=== PATIENT | female | born 1995 | race Caucasian/White ===

== ENCOUNTER → 2022-12-02 10:44 | Outpatient (CLI) | payer BC, MEDICAID, SELFPAY | PROVIDERS: Visit Provider Nurse Practitioner Family | DX: Z11.1 Encounter for screening for respiratory tuberculosis (principal) | CPT/HCPCS: 86580 ==

== ENCOUNTER 2023-06-22 10:32 | Emergency (ER) | payer BC, MEDICAID, SELFPAY ==
[2023-06-22 10:40] VITALS: BP 106/80; PULSE 85; RESP 19; TEMP 36.6; O2SAT 98; BMI 22.1
--- NOTE | 2023-06-22 10:49 | EXP.UTC ---
Discharge Plan Disposition Patient Disposition: Home, Self-Care Condition: Good Prescriptions Prescriptions: New ondansetron 4 mg tablet,disintegrating 4 mg PO Q8H PRN (Reason: nausea and vomiting) Qty: 12 0RF No Action magnesium oxide 400 mg (241.3 mg magnesium) tablet 400 mg PO DAILY prazosin 2 mg capsule 2 mg PO DAILY Vraylar 3 mg Capsule 3 mg PO DAILY Caplyta 42 mg capsule 42 mg PO DAILY Referrals Follow up/Referrals: Provider,Referral, MD [Primary Care Provider] - See instructions Activity Restrictions/Add. Instructions Additional Instructions/Restrictions: Drink extra fluids with and between meals. If you have difficulty drinking, try very small amounts of water or suck on ice chips. ? Avoid fruit juices, as these do not replace minerals and can actually increase diarrhea. ? Children and adults can use sports drinks to replenish electrolytes. Younger children and infants should use products formulated for children, like oral rehydration solutions. ? Eat food in small amounts and let your stomach recover. ? Get lots of rest. You may feel tired or weak. ? No greasy or fried foods for the next 24-48 hours BRAT diet Bananas Rice Apples and [place] ? Make sure to drink plenty of liquids ? Return if needed ? Straight to ER if any life threatening symptoms ? Zofran as prescribed ? Follow up with family doctor in the next 48-72 hours if no improvement or any worsening of symptoms You were tested for today for Upper Respiratory Panel with COVID19 your test result should be back in the next 24hours, you may check your results on the [facility] if your COVID or Influenza is positive you must Quarantine for 5 days Clinical Impressions Clinical Impression: Viral syndrome Stand Alone Forms Stand Alone Forms: Work/School Release Instructions Patient Instructions: DI for Viral Syndrome Discharge ED Provider: Vicenta Bui [facility] [place] H[place] General Stated complaint: fever, chills, nausea, Mode of Arrival: Ambulatory Source of Information: Patient Limitations: No Limitations Time Seen by Provider: 06/22/23 10:49 Description of Symptoms (Recalled from Triage Doc. by RN): PATIENT C/O CHILLS, HEADACHE, SORE THROAT, NAUSEA AND VOMITING X 4 DAYS HEENT Symptoms (Recalled from RN notes): Yes Resp Symptoms (Recalled from RN notes): No Skin Symptoms (Recalled from RN notes): No MS Symptoms (Recalled from RN notes): No Functional Status (Recalled from RN notes): WNL History of Present Illness Provider Complaint: Patient states she has been sick for about 3-4 days States that a couple days ago she had fever then it stopped and she has continued to have body aches, chills, N/V and low grade fever so this morning when she woke up and was still not feeling well she came in to get checked because of everything going around Related Data Home Medications Medication Instructions Recorded Confirmed cariprazine 3 mg capsule (Vraylar) 3 mg PO DAILY 06/22/23 06/22/23 lumateperone 42 mg capsule 42 mg PO DAILY 06/22/23 06/22/23 (Caplyta) magnesium oxide 400 mg (241.3 mg 400 mg PO DAILY 06/22/23 06/22/23 magnesium) tablet prazosin 2 mg capsule 2 mg PO DAILY 06/22/23 06/22/23 Previous Rx's Medication Instructions Recorded ondansetron 4 mg disintegrating 4 mg PO Q8H PRN nausea and 06/22/23 tablet vomiting #12 tabs Allergies Allergy/AdvReac Type Severity Reaction Status Date / Time albuterol Allergy Verified 06/22/23 10:47 Worker's Comp Is this a Worker's Comp case?: No [facility] Disclaimer: The information contained in this section may have been updated after the patient was seen, as this information can be updated by other users. Medical History (Updated 06/22/23 @ 11:23 by Vicenta Bui APRN) Anxiety Depression History of anemia Migraine Urinary tract infection Surgical History (Updated 06/22/23 @ 10:49 by Ruth Segundo RN) H/O wisdom tooth extraction History of section Social History Smoking Status: Unknown if ever smoked alcohol intake: never current occupational status: employed Travel in the last 8 weeks: None ROS Obtained: Yes All systems reviewed & no additional complaints except as documented and Yes Systems reviewed as appropriate & no additional complaints except as documented Constitutional Constitutional: Reports system reviewed and no additional complaints, except as documented, Reports as per HPI, Reports body ache, Reports chills and Reports fever(s) ENT Ears, Nose, Mouth, and Throat: Reports system reviewed and no additional complaints, except as documented, Reports as per HPI, Reports nasal congestion and Reports sore throat Cardiovascular Cardiovascular: Reports system reviewed and no additional complaints, except as documented and Reports as per HPI Respiratory Respiratory: Reports system reviewed and no additional complaints, except as documented and Reports as per HPI Gastrointestinal Gastrointestingal: Reports system reviewed and no additional complaints, except as documented, as per HPI, nausea and vomiting Physical Exam General General appearance: alert and in no apparent distress ENT ENT exam: Present mucous membranes moist Expanded ENT Exam Nose exam: Absent sinus tenderness Throat exam: Present tonsillar erythema Respiratory Respiratory exam: Present normal lung sounds bilaterally; Absent respiratory distress or wheezes Cardiovascular Cardiovascular exam: Present regular rate, normal rhythm and normal heart sounds Abdominal Exam Abdominal exam: Present soft and normal bowel sounds; Absent distention or tenderness Neurological Exam Neurological exam: Present alert, oriented X3 and normal gait Medical Decision Making Kendall Inquiry Pt receiving controlled substance: No Kendall was queried for this patient: No Vital Signs: 06/22/23 10:40 Temperature 97.8 F Temperature Source Oral Pulse Rate [Right Brachial] 85 Respiratory Rate 19 Blood Pressure [Right Arm] 106/80 L Blood Pressure Mean [Right Arm] 88 Blood Pressure Source [Right Arm] Automatic Cuff Blood Pressure Position [Right Arm] Sitting 02 Sat by Pulse Oximetry 98 Oxygen Delivery Method Room Air Lab Data Lab results reviewed: Yes I reviewed the patient's lab results.
[2023-06-22 10:54] VITALS: BP 106/80; PULSE 85; RESP 19; TEMP 36.6; O2SAT 98
[2023-06-22] MEDS: ONDANSETRON 4MG ODT 4 MG SL (11:04)
[2023-06-22 11:05] LABS: UTC Influenza A Antigen Negative (Negative); UTC Influenza B Antigen Negative (Negative); UTC Strep Screen (Rapid) Negative (Negative)
[2023-06-22 11:32] LABS: Adenovirus,PCR Not Detected (NotDetected); Coronavirus 229E Not Detected (NotDetected); Coronavirus NL63 Not Detected (NotDetected); Coronavirus OC43 Not Detected (NotDetected); Coronovirus HKU1,PCR Not Detected (NotDetected); Human Metapneumovirus Not Detected (NotDetected); Influenza A, PCR Not Detected (NotDetected); Influenza AH1, 2009 Not Detected (NotDetected); Influenza AH1, PCR Not Detected (NotDetected); Influenza AH3,PCR Not Detected (NotDetected); Influenza B, PCR Not Detected (NotDetected); Parainfluenza 1, PCR Not Detected (NotDetected); Parainfluenza 2, PCR Not Detected (NotDetected); Parainfluenza 3, PCR Not Detected (NotDetected); Parainfluenza 4, PCR Not Detected (NotDetected); Respiratory Syncytial Virus Not Detected (NotDetected); Rhinovirus/Enterovirus Not Detected (NotDetected)
[2023-06-22 12:51] LABS: Coronavirus 19, PCR Detected (NotDetected)
== END 2023-06-22 10:57 | disposition home or self-care (01) ==
PROVIDERS: Emergency Provider Nurse Practitioner
DX: U07.1 COVID-19 (principal); R50.9 Fever, unspecified; R11.2 Nausea with vomiting, unspecified; R07.0 Pain in throat; M79.18 Myalgia, other site
CPT/HCPCS: 87632; 87635; 87804; 87880; 99204; 99212; G0463

== ENCOUNTER 2023-06-30 15:36 | Emergency (ER) | payer BC, MEDICAID, SELFPAY ==
[2023-06-30 15:50] VITALS: BP 105/57; PULSE 95; RESP 22; TEMP 36.6; O2SAT 99; BMI 23.6
--- NOTE | 2023-06-30 16:08 | ED_ITS ---
Discharge Plan Disposition Patient Disposition: Home, Self-Care Condition: Good Prescriptions Prescriptions: New meclizine 12.5 mg tablet 12.5 mg PO TID PRN (Reason: dizziness) Qty: 14 0RF ondansetron 4 mg tablet,disintegrating 4 mg PO Q8H PRN (Reason: nausea and vomiting) Qty: 10 0RF No Action magnesium oxide 400 mg (241.3 mg magnesium) tablet 400 mg PO DAILY prazosin 2 mg capsule 2 mg PO DAILY Caplyta 42 mg capsule 42 mg PO DAILY Referrals Follow up/Referrals: Provider,Referral, MD [Primary Care Provider] - See instructions Activity Restrictions/Add. Instructions Additional Instructions/Restrictions: Take meclizine as prescribed for dizziness May make you drowsy so no driving while taking this medication and no driving when having dizzy spells Clinical Impressions Clinical Impression: Vertigo Instructions Patient Instructions: DI for Vertigo, Vertigo, Meclizine Discharge ED Provider: Vicenta Bui [facility] [place] HPI General Stated complaint: dizziness, nausea covid+ 2 wks agp Time Seen by Provider: 06/30/23 15:50 History of Present Illness Provider Complaint: Patient states that she was dx with COVID a week and half ago and she has since been having some dizziness and nausea on and off when she turns her head, moves too quickly or plays video games States that she feels like everything is spinning and it makes her sick at her stomach States today it was still happening so she came in Related Data Home Medications Medication Instructions Recorded Confirmed lumateperone 42 mg capsule 42 mg PO DAILY 06/30/23 06/30/23 (Caplyta) magnesium oxide 400 mg (241.3 mg 400 mg PO DAILY 06/30/23 06/30/23 magnesium) tablet prazosin 2 mg capsule 2 mg PO DAILY 06/30/23 06/30/23 Previous Rx's Medication Instructions Recorded meclizine 12.5 mg tablet 12.5 mg PO TID PRN dizziness #14 06/30/23 tabs ondansetron 4 mg disintegrating 4 mg PO Q8H PRN nausea and 06/30/23 tablet vomiting #10 tabs Allergies Allergy/AdvReac Type Severity Reaction Status Date / Time albuterol Allergy Verified 06/22/23 10:47 [facility] Disclaimer: The information contained in this section may have been updated after the patient was seen, as this information can be updated by other users. Medical History (Updated 06/30/23 @ 16:20 by Vicenta Bui APRN) History of anemia Urinary tract infection Depression Anxiety Migraine Surgical History (Updated 06/22/23 @ 10:49 by Ruth Segundo RN) H/O wisdom tooth extraction History of section Social History (Updated 06/22/23 @ 11:23 by Vicenta Bui APRN) Smoking Status: Unknown if ever smoked alcohol intake: never current occupational status: employed Travel in the last 8 weeks: None ROS Obtained: Yes All systems reviewed & no additional complaints except as documented and Yes Systems reviewed as appropriate & no additional complaints except as documented Constitutional Constitutional: Reports system reviewed and no additional complaints, except as documented, Reports as per HPI, Denies headache(s) and Denies weakness Eyes Eyes: Reports system reviewed and no additional complaints, except as documented, Reports as per HPI, Denies change in vision, Denies diplopia, Denies eye discharge, Denies irritation, Denies sensitivity to light, Denies eye pain, Denies photophobia and Denies tunnel vision ENT Ears, Nose, Mouth, and Throat: Reports system reviewed and no additional complaints, except as documented, Reports as per HPI, Denies disequilibrium, Reports dizziness, Denies headache(s) and Reports vertigo Cardiovascular Cardiovascular: Reports system reviewed and no additional complaints, except as documented and Reports as per HPI Respiratory Respiratory: Reports system reviewed and no additional complaints, except as documented and Reports as per HPI Gastrointestinal Gastrointestingal: Reports system reviewed and no additional complaints, except as documented and as per HPI Genitourinary Female Genitourinary: Reports system reviewed and no additional complaints, except as documented and Reports as per HPI Musculoskeletal Musculoskeletal: Reports system reviewed and no additional complaints, except as documented and Reports as per HPI Neurologic Neurologic: Reports system reviewed and no additional complaints, except as documented, Reports as per HPI, Denies behavioral changes, Denies confusion, Denies disequilibrium, Reports dizziness, Denies headache(s), Reports vertigo and Denies weakness Physical Exam General General appearance: alert and in no apparent distress Eye Eye exam: Present normal appearance, PERRL and EOMI ENT ENT exam: Present mucous membranes moist Neck Neck exam: Present normal inspection, full ROM and trachea midline Respiratory Respiratory exam: Present normal lung sounds bilaterally; Absent respiratory distress or wheezes Cardiovascular Cardiovascular exam: Present regular rate, normal rhythm and normal heart sounds Abdominal Exam Abdominal exam: Present soft and normal bowel sounds; Absent distention or tenderness Neurological Exam Neurological exam: Present alert, oriented X3 and normal gait Medical Decision Making Kendall Inquiry Pt receiving controlled substance: No Kendall was queried for this patient: No Lab Data Lab results reviewed: Yes I reviewed the patient's lab results.
[2023-06-30 16:20] VITALS: BP 105/57; PULSE 95; RESP 22; TEMP 36.6; O2SAT 99
== END 2023-06-30 16:24 | disposition home or self-care (01) ==
PROVIDERS: Emergency Provider Nurse Practitioner
DX: R42 Dizziness and giddiness (principal); R11.0 Nausea
CPT/HCPCS: 99212; 99214; G0463